=== PATIENT | male | born 1995 | race African-American/Black ===

== ENCOUNTER 2020-08-25 22:02 | Emergency (ER) | payer OTHER ==
[~2020-08-25] VITALS: Ht 167.7 cm; Wt 55.3 kg
[2020-08-26] MEDS ORDERED: ONDANSETRON 4 MG/2 ML (SDV) Z0FRAN ONE (00:15)
[2020-08-26] MEDS ORDERED: ONDANSETRON 4 MG/2 ML (SDV) Z0FRAN IVP ONE (00:15)
[2020-08-26] MEDS ORDERED: LACTATED RINGERS 1,000 ML IV ONE (00:15)
[2020-08-26 00:19] LABS: BASOPHILS # (AUTO) 0.1 10^3/uL (0.0-0.1); BASOPHILS % (AUTO) 0 % (0-10); EOSINOPHILS # (AUTO) 0.1 10^3/uL (0.0-0.3); EOSINOPHILS % (AUTO) 0 % (0-10); HEMATOCRIT 49 % (40-54); HEMOGLOBIN 16.5 g/dL (13.3-17.7); LYMPHOCYTES # (AUTO) 0.8 10^3/uL (1.0-4.0); LYMPHOCYTES % (AUTO) 5 % (12-44); MEAN CORPUSCULAR HEMOGLOBIN 30 pg (25-34); MEAN CORPUSCULAR HGB CONC 34 g/dL (32-36); MEAN CORPUSCULAR VOLUME 90 fL (80-99); MEAN PLATELET VOLUME 9.8 fL (9.0-12.2); MONOCYTES % (AUTO) 6 % (0-12); NEUTROPHILS % (AUTO) 84 % (42-75); PLATELET COUNT 320 10^3/uL (130-400); WHITE BLOOD COUNT 16.6 10^3/uL (4.3-11.0)
[2020-08-26 00:25] LABS: BILIRUBIN,URINE 2+ (NEGATIVE); CLARITY,URINE SL CLOUDY; COLOR,URINE RED; GLUCOSE, URINE (UA) NEGATIVE (NEGATIVE); KETONES,URINE 1+ (NEGATIVE); LEUKOCYTE ESTERASE ,URINE 2+ (NEGATIVE); NITRITE,URINE POSITIVE (NEGATIVE); PH,URINE 6.5 (5-9); PROTEIN,URINE 3+ (NEGATIVE)
--- NOTE | 2020-08-26 00:28 | ED General ---
General Chief Complaint: Abdominal/GI Problems Stated Complaint: DEHYDRATION/VOMITING Source of Information: Patient Exam Limitations: Language Barrier (AMOR ANN APRN) History of Present Illness Date Seen by Provider: August 26, 2020 Time Seen by Provider: 00:13 Initial Comments This is a well-appearing 25-year-old male who presents to the ER with complaints of fatigue, nausea, muscle cramps after running a 10K race. States he had about 5 laps left ago when he began feeling very fatigued and like he was going to pass out, but states he pushed through and finished the race. After the race he laid down briefly and attempted to walk out his muscle cramps. 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 States he had some diarrhea prior to entering the ER and mild abdo winifred pain, however pain has resolved. He reports no past medical history and is otherwise healthy. Does not take any scheduled or [id number] medications. Does not smoke, alcohol use, illicit drug use. No fever, chills, cough, shortness of breath, abdominal pain at this time. (AMOR ANN APRN) Allergies and Home Medications Allergies Coded Allergies: No Known Drug Allergies (Unverified , 08/26/20) Home Medications Ondansetron 4 Mg Tab.rapdis, 4 MG PO Q6H PRN for NAUSEA/VOMITING Prescribed by: NATALI MOLINA on 08/26/20 0150 Patient Home Medication List Home Medication List Reviewed: Yes (AMOR ANN APRN) Review of Systems Review of Systems Constitutional: see HPI EENTM: no symptoms reported Respiratory: no symptoms reported Cardiovascular: no symptoms reported Gastrointestinal: see HPI Genitourinary: no symptoms reported Musculoskeletal: see HPI Skin: no symptoms reported Psychiatric/Neurological: No Symptoms Reported Hematologic/Lymphatic: No Symptoms Reported Immunological/Allergic: no symptoms reported (AMOR ANN APRN) Physical Exam Vital Signs Capillary Refill : (AMOR ANN APRN) Height, Weight, BMI Height: '" Weight: lbs. oz. kg; BMI Method: General Appearance: No Apparent Distress, WD/WN Eyes: Bilateral Eye Normal Inspection, Bilateral Eye PERRL, Bilateral Eye EOMI HEENT: PERRL/EOMI, Normal ENT Inspection, Pharynx Normal, Moist Mucous Membranes Neck: Full Range of Motion, Normal Inspection Respiratory: Lungs Clear, Normal Breath Sounds, No Accessory Muscle Use Cardiovascular: Regular Rate, Rhythm, Normal Peripheral Pulses Gastrointestinal: Normal Bowel Sounds, Non Tender, Soft Neurologic/Psychiatric: Alert, Oriented x3, No Motor/Sensory Deficits, Normal Mood/Affect Skin: Normal Color, Warm/Dry (AMOR ANN APRN) Progress/Results/Core Measures Suspected Sepsis SIRS Temperature: Pulse: Respiratory Rate: Laboratory Tests 08/26/20 00:06: White Blood Count 16.6H Blood Pressure / Mean: Laboratory Tests 08/26/20 00:06: Creatinine 1.33H, Platelet Count 320, Total Bilirubin 1.6H (AMOR ANN APRN) Results/Orders Lab Results Laboratory Tests Test 08/25/20 00:15 08/26/20 00:06 Range/Units Urine Color RED H Urine Clarity SL CLOUDY Urine pH 6.5 5-9 Urine Specific [place] >=1.030 1.016-1.022 Urine Protein 3+ H NEGATIVE Urine Glucose (UA) NEGATIVE NEGATIVE Urine Ketones 1+ H NEGATIVE Urine Nitrite POSITIVE H NEGATIVE Urine Bilirubin 2+ H NEGATIVE Urine Urobilinogen 4.0 < = 1.0 MG/DL Urine Leukocyte Esterase 2+ H NEGATIVE Urine RBC (Auto) NEGATIVE NEGATIVE Urine RBC NONE /HPF Urine WBC 5-10 H /HPF Urine Squamous Epithelial Cells NONE /HPF Urine Renal Epithelial Cells NONE /HPF Urine Crystals NONE /LPF Urine Bacteria NEGATIVE /HPF Urine Casts PRESENT /LPF Urine Hyaline Casts >50 H /LPF Urine Mucus NEGATIVE /LPF Urine Culture Indicated YES White Blood Count 16.6 H 4.3-11.0 10^3/uL Red Blood Count 5.48 4.30-5.52 10^6/uL Hemoglobin 16.5 13.3-17.7 g/dL Hematocrit 49 40-54 % Mean Corpuscular Volume 90 80-99 fL Mean Corpuscular Hemoglobin 30 25-34 pg Mean Corpuscular Hemoglobin Concent 34 32-36 g/dL Red Cell Distribution Width 12.1 10.0-14.5 % Platelet Count 320 130-400 10^3/uL Mean Platelet Volume 9.8 9.0-12.2 fL Immature Granulocyte % (Auto) 4 % Neutrophils (%) (Auto) 84 H 42-75 % Lymphocytes (%) (Auto) 5 L 12-44 % Monocytes (%) (Auto) 6 0-12 % Eosinophils (%) (Auto) 0 0-10 % Basophils (%) (Auto) 0 0-10 % Neutrophils # (Auto) 14.0 H 1.8-7.8 10^3/uL Lymphocytes # (Auto) 0.8 L 1.0-4.0 10^3/uL Monocytes # (Auto) 1.0 0.0-1.0 10^3/uL Eosinophils # (Auto) 0.1 0.0-0.3 10^3/uL Basophils # (Auto) 0.1 0.0-0.1 10^3/uL Immature Granulocyte # (Auto) 0.7 H 0.0-0.1 10^3/uL Neutrophils % (Manual) 86 % Lymphocytes % (Manual) 5 % Monocytes % (Manual) 7 % Band Neutrophils 2 % Blood Morphology Comment NORMAL Sodium Level 144 135-145 MMOL/L Potassium Level 4.3 3.6-5.0 MMOL/L Chloride Level 103 98-107 MMOL/L Carbon Dioxide Level 23 21-32 MMOL/L Anion Gap 18 H 5-14 MMOL/L Blood Urea Nitrogen 10 7-18 MG/DL Creatinine 1.33 H 0.60-1.30 MG/DL Estimat Glomerular Filtration Rate > 60 BUN/Creatinine Ratio 8 Glucose Level 133 H 70-105 MG/DL Calcium Level 10.3 H 8.5-10.1 MG/DL Corrected Calcium 8.5-10.1 MG/DL Total Bilirubin 1.6 H 0.1-1.0 MG/DL Aspartate Amino Transf (AST/SGOT) 38 H 5-34 U/L Alanine Aminotransferase (ALT/SGPT) 27 0-55 U/L Alkaline Phosphatase 61 40-136 U/L Total Creatine Kinase 339 H 30-200 U/L Myoglobin 332.7 H 10.0-92.0 NG/ML Total Protein 8.7 H 6.4-8.2 GM/DL Albumin 5.0 H 3.2-4.5 GM/DL (NATALI MOLINA) My Orders Orders - NATALI MOLINA Ondansetron Injection (Zofran Injectio (08/26/20 00:15) (NATALI MOLINA) Medications Given in ED Current Medications Medications Dose Ordered Sig/Joe Route Start Time Stop Time Status Last Admin Dose Admin Lactated Ringer's 1,000 ml @ 0 mls/hr Q0M ONCE IV 08/26/20 00:15 08/26/20 00:16 DC 08/26/20 00:21 1,000 MLS/HR Ondansetron HCl 4 mg ONCE ONCE IVP 08/26/20 00:15 08/26/20 00:16 DC 08/26/20 00:23 4 MG (NATALI MOLINA) Vital Signs/I&O Capillary Refill : (AMOR ANN BI MANAGER) Progress Note : Progress Note Patient examined and in no acute distress. Will obtain basic labs, UA give a liter of LR and Zofran 4 mg IV push for nausea at this time. While obtaining UA he was noted to have dark purplish urine. Added CK, myoglobin to order set. (MAOR ANN BI MANAGER) Progress Note : Progress Note Assumed care of the patient 0 100. I agree with above documented plan. The CPK does indicate mild rhabdomyolysis. After liter of fluids he is alert, oriented, answering questions appropriately. Taking oral fluids. We will send him home with a little Zofran and instructions for oral rehydration and off all physical activity for the next 3 days. 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 (NATALI MOLINA) Departure Impression Primary Impression: Exertional rhabdomyolysis Additional Impression: Dehydration Disposition: 01 HOME, SELF-CARE Condition: Stable Departure-Patient Inst. Decision time for Depature: 01:48 (NATALI MOLINA) Referrals: NO,LOCAL PHYSICIAN (PCP/Family) Primary Care Physician Patient Instructions: Rhabdomyolysis (DC), Dehydration, Adult ED Add. Discharge Instructions: Make sure you are drinking fluids throughout the day. You should be urinating frequently. Sports drinks are acceptable. Avoid alcohol or caffeine for now. Stay in a climate controlled area and no strenuous, physical exertion for the next 3 days. If your symptoms are worsening despite Tylenol, heating pads, topical creams such as icy hot Biofreeze or other worrisome symptoms arise then please return to the ER or your primary care doctor for further management. Zofran 1 tablet under the tongue every 6 hours as necessary for nausea or vomiting. Plan to follow-up with your primary care provider in the next week for reevaluation. All discharge instructions reviewed with patient and/or family. Voiced understanding. Scripts Ondansetron (Ondansetron Odt) 4 Mg Tab.rapdis 4 MG PO Q6H PRN for NAUSEA/VOMITING, #8 TAB 0 Refills Prov: NATALI MOLINA 08/26/20 Work/School Note: Work Release Form Date Seen in the Emergency Department: August 26, 2020 Return to Work: August 29, 2020 Restrictions: No Sports-Until Released AMOR ANN BI MANAGER August 26, 2020 00:28 NATALI MOLINA August 26, 2020 01:51
[2020-08-26 00:30] LABS: CHLORIDE 103 MMOL/L (98-107); POTASSIUM 4.3 MMOL/L (3.6-5.0); SODIUM 144 MMOL/L (135-145)
[2020-08-26 00:31] LABS: CALCIUM 10.3 MG/DL (8.5-10.1)
[2020-08-26 00:32] LABS: GLUCOSE 133 MG/DL (70-105)
[2020-08-26 00:33] LABS: TOTAL PROTEIN 8.7 GM/DL (6.4-8.2)
[2020-08-26 00:34] LABS: BILIRUBIN,TOTAL 1.6 MG/DL (0.1-1.0); CARBON DIOXIDE 23 MMOL/L (21-32)
[2020-08-26 00:36] LABS: ALKALINE PHOSPHATASE 61 U/L (40-136); CREATININE SERUM 1.33 MG/DL (0.60-1.30); GFR ESTIMATED > 60
[2020-08-26 00:37] LABS: BUN/CREATININE RATIO 8
[2020-08-26 00:38] LABS: BACTERIA,URINE NEGATIVE /HPF; HYALINE CASTS, URINE >50 /LPF
[2020-08-26 00:39] LABS: ALANINE AMINOTRANSFERASE 27 U/L (0-55); BAND NEUTROPHILS 2 %; LYMPHOCYTES % (MANUAL) 5 %; MONOCYTES % (MANUAL) 7 %; NEUTROPHILS % (MANUAL) 86 %; RBC MORPH NORMAL
[2020-08-26] MEDS ORDERED: ONDA4TAB11 PO (01:50)
[2020-08-26 01:56] VITALS: BP 119/74
== END 2020-08-26 02:04 | disposition home or self-care (01) ==
LOC: ER 22:05
DX: M62.82 Rhabdomyolysis (principal); E86.0 Dehydration
CPT/HCPCS: 36415; 80053; 81000; 82550; 83874; 85007; 85027; 87088